=== PATIENT | female | born 2000 | race African-American/Black ===

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

== ENCOUNTER 2019-05-16 15:10 | Emergency (ER) | payer OTHER ==
[~2019-05-16] VITALS: Ht 157.5 cm; Wt 54.0 kg
[2019-05-16 15:10] VITALS: BP 104/61
[~2019-05-16 15:10] MED LIST changes: +GUAIFEN-CODEINE10 ML PO; +TESSALON PERLE100 MG PO
[2019-05-16] MEDS ORDERED: DIFLUCAN200 MG PO (15:13)
[2019-05-16] MEDS ORDERED: AMOXICILLIN 50500 MG PO (15:51)
[2019-05-16] MEDS ORDERED: IBUPROFEN 600600 M1 PO (15:51)
== END 2019-05-16 16:00 | disposition home or self-care (01) ==
LOC: ER 15:10
DX: J02.9 Acute pharyngitis, unspecified (principal); R59.1 Generalized enlarged lymph nodes

== ENCOUNTER 2019-07-31 12:08 | Emergency (ER) | payer OTHER ==
[~2019-07-31] VITALS: Ht 162.6 cm; Wt 70.3 kg
[~2019-07-31 12:08] MED LIST changes: +AMOXICILLIN 50500 MG PO; +DIFLUCAN200 MG PO; +IBUPROFEN 600600 M1 PO
[2019-07-31 15:08] LABS: HEMOGLOBIN 12.4 gm/dL (12.0-15.0)
[2019-07-31 15:10] LABS: ABSOLUTE NEUTROPHILS 8.3 thou/uL (1.4-8.2); BASOPHILS 0.3 % (0.0-2.0); EOSINOPHILS 3.5 % (0.0-3.0); HEMATOCRIT 38.1 % (37.0-47.0); LYMPHOCYTES 17.9 % (24.0-44.0); MCH 27.4 pg (26.0-34.0); MCHC 32.5 g/dL (28.0-37.0); MCV 84.1 fL (80.0-100.0); MONOCYTES 6.9 % (1.0-8.0); PLATELET COUNT 274 thou/uL (150-400); POLYS 71.4 % (36.0-66.0); RBC 4.53 mil/uL (4.20-5.00); RDW 12.8 % (10.5-14.5); WBC 11.6 thou/uL (4.0-11.0)
[2019-07-31 15:19] LABS: CALCIUM 9.1 mg/dL (8.5-10.1); CREATININE 0.7 mg/dL (0.6-1.0); POTASSIUM 3.4 mmol/L (3.5-5.1)
[2019-07-31 15:25] LABS: ALBUMIN 4.2 g/dL (3.4-5.0); TOTAL BILIRUBIN 0.4 mg/dL (<0.1-1.0)
[2019-07-31 16:07] VITALS: BP 116/58
[2019-07-31] MEDS ORDERED: ONDANSETRON HCL4 M2 PO (16:24)
[2019-07-31 18:43] LABS: URINE BILIRUBIN NEGATIVE (Negative); URINE BLOOD TRACE (Negative); URINE CLARITY CLEAR; URINE COLOR YELLOW; URINE GLUCOSE-RANDOM* NEGATIVE (Negative); URINE KETONES NEGATIVE (Negative); URINE LEUKOCYTES-REFLEX NEGATIVE (Negative); URINE NITRITE-REFLEX NEGATIVE (Negative); URINE PROTEIN (DIPSTICK) NEGATIVE (Negative); URINE SPECIFIC GRAVITY <= 1.005 (1.005-1.035); URINE UROBILINOGEN 0.2 E.U./dl (0.2-1.0)
== END 2019-07-31 16:07 | disposition home or self-care (01) ==
LOC: ER 12:08
PROVIDERS: Physician Assistant
DX: O34.81 Maternal care for other abnormalities of pelvic organs, first trimester (principal); N83.202 Unspecified ovarian cyst, left side; O99.511 Diseases of the respiratory system complicating pregnancy, first trimester; J02.9 Acute pharyngitis, unspecified; Z3A.01 Less than 8 weeks gestation of pregnancy

== ENCOUNTER 2019-09-07 21:49 | Emergency (ER) | payer OTHER ==
[~2019-09-07] VITALS: Ht 157.5 cm; Wt 54.4 kg
[2019-09-07 23:19] LABS: URINE BILIRUBIN 1+ (Negative); URINE BLOOD 3+ (Negative); URINE CLARITY CLOUDY; URINE COLOR ORANGE; URINE GLUCOSE-RANDOM* NEGATIVE (Negative); URINE KETONES TRACE (Negative); URINE LEUKOCYTES-REFLEX NEGATIVE (Negative); URINE NITRITE-REFLEX NEGATIVE (Negative); URINE PROTEIN (DIPSTICK) 1+ (Negative); URINE UROBILINOGEN 0.2 E.U./dl (0.2-1.0)
[2019-09-07 23:30] LABS: BACTERIA-REFLEX 1-9 Few /HPF (None Seen); CASTS None Seen /LPF (None Seen); MUCUS 0-3 Light strn/LPF (None Seen); SQUAMOUS 4-10 Moderate /LPF (0-3); URINE RBC >20 Many /HPF (0-2); URINE WBC-REFLEX 0-5 Rare /HPF (0-5)
[2019-09-07 23:31] LABS: CRYSTALS None Seen /LPF (None Seen)
[2019-09-08 02:32] LABS: ABSOLUTE NEUTROPHILS 9.9 thou/uL (1.4-8.2); BASOPHILS 0.3 % (0.0-2.0); EOSINOPHILS 2.3 % (0.0-3.0); HEMATOCRIT 38.9 % (37.0-47.0); HEMOGLOBIN 12.4 gm/dL (12.0-15.0); LYMPHOCYTES 17.2 % (24.0-44.0); MCH 27.3 pg (26.0-34.0); MCHC 31.9 g/dL (28.0-37.0); MCV 85.7 fL (80.0-100.0); MONOCYTES 5.7 % (1.0-8.0); PLATELET COUNT 275 thou/uL (150-400); POLYS 74.5 % (36.0-66.0); RBC 4.55 mil/uL (4.20-5.00); RDW 12.8 % (10.5-14.5); WBC 13.2 thou/uL (4.0-11.0)
[2019-09-08 02:37] LABS: CALCIUM 8.9 mg/dL (8.5-10.1); CREATININE 0.7 mg/dL (0.6-1.0); POTASSIUM 3.4 mmol/L (3.5-5.1)
[2019-09-08 02:41] LABS: ALBUMIN 4.1 g/dL (3.4-5.0); DIRECT BILIRUBIN 0.1 mg/dL (<0.1-0.3); TOTAL BILIRUBIN 0.6 mg/dL (<0.1-1.0); TOTAL PROTEIN 7.3 g/dL (6.4-8.2)
[2019-09-08 03:49] VITALS: BP 107/79
== END 2019-09-08 03:49 | disposition home or self-care (01) ==
LOC: ER 21:49
PROVIDERS: Emergency Medicine; Physician Assistant
DX: O03.4 Incomplete spontaneous abortion without complication (principal); Z3A.01 Less than 8 weeks gestation of pregnancy

== ENCOUNTER 2019-09-12 14:50 | Emergency (ER) | payer OTHER ==
[~2019-09-12] VITALS: Ht 157.5 cm; Wt 54.4 kg
[2019-09-12 16:00] LABS: ABSOLUTE NEUTROPHILS 4.3 thou/uL (1.4-8.2); BASOPHILS 0.8 % (0.0-2.0); EOSINOPHILS 4.9 % (0.0-3.0); HEMATOCRIT 42.3 % (37.0-47.0); HEMOGLOBIN 13.6 gm/dL (12.0-15.0); LYMPHOCYTES 24.3 % (24.0-44.0); MCH 27.3 pg (26.0-34.0); MCV 85.2 fL (80.0-100.0); MONOCYTES 7.3 % (1.0-8.0); PLATELET COUNT 280 thou/uL (150-400); POLYS 62.7 % (36.0-66.0); RBC 4.97 mil/uL (4.20-5.00); RDW 12.7 % (10.5-14.5); WBC 6.8 thou/uL (4.0-11.0)
[2019-09-12 16:08] LABS: CALCIUM 9.8 mg/dL (8.5-10.1); CREATININE 0.7 mg/dL (0.6-1.0); POTASSIUM 3.5 mmol/L (3.5-5.1)
[2019-09-12 16:14] LABS: ALBUMIN 4.1 g/dL (3.4-5.0); TOTAL BILIRUBIN 0.6 mg/dL (<0.1-1.0); TOTAL PROTEIN 7.6 g/dL (6.4-8.2)
[2019-09-12] MEDS ORDERED: ZOFRAN ODT4 MG PO (17:55)
[2019-09-12] MEDS ORDERED: NORCO 5-325 TA1 EAC1 PO (17:55)
[2019-09-12 18:17] VITALS: BP 105/74
== END 2019-09-12 18:21 | disposition home or self-care (01) ==
LOC: ER 14:50
PROVIDERS: Physician Assistant
DX: O03.9 Complete or unspecified spontaneous abortion without complication (principal); R42 Dizziness and giddiness; R10.30 Lower abdominal pain, unspecified

== ENCOUNTER 2019-11-24 13:18 | Emergency (ER) | payer OTHER ==
[~2019-11-24] VITALS: Ht 157.5 cm; Wt 49.9 kg
[~2019-11-24 13:18] MED LIST changes: +NORCO 5-325 TA1 EAC1 PO; +ZOFRAN ODT4 MG PO
[2019-11-24 13:45] LABS: URINE BILIRUBIN NEGATIVE (Negative); URINE BLOOD TRACE (Negative); URINE CLARITY SL CLOUDY; URINE COLOR YELLOW; URINE GLUCOSE-RANDOM* NEGATIVE (Negative); URINE KETONES NEGATIVE (Negative); URINE NITRITE-REFLEX NEGATIVE (Negative); URINE PROTEIN (DIPSTICK) NEGATIVE (Negative); URINE UROBILINOGEN 0.2 E.U./dl (0.2-1.0)
[2019-11-24 13:47] LABS: URINE LEUKOCYTES-REFLEX 3+ (Negative)
[2019-11-24 15:11] LABS: SQUAMOUS >10 Many /LPF (0-3)
[2019-11-24 15:13] LABS: BACTERIA-REFLEX 1-9 Few /HPF (None Seen); URINE RBC 0-2 Rare /HPF (0-2); URINE WBC-REFLEX 0-5 Rare /HPF (0-5)
[2019-11-24 15:14] LABS: CASTS None Seen /LPF (None Seen); CRYSTALS None Seen /LPF (None Seen); YEAST-REFLEX Present (None Seen)
[2019-11-24 16:05] VITALS: BP 103/61
[2019-11-24] MEDS ORDERED: DIFLUCAN150 M1 PO (16:27)
== END 2019-11-24 16:05 | disposition home or self-care (01) ==
LOC: ER 13:18
PROVIDERS: Emergency Medicine
DX: N76.0 Acute vaginitis (principal); B37.3 Candidiasis of vulva and vagina

== ENCOUNTER → 2020-07-17 | Outpatient (CLI) | payer OTHER ==
[~2020-07-17] MED LIST changes: +DIFLUCAN150 M1 PO
== END ==
LOC: LAB 08:23
PROVIDERS: ATTEND Otolaryngology
DX: U07.1 COVID-19 (principal)